=== PATIENT | female | born 2000 | race Caucasian/White ===

== ENCOUNTER 2024-10-01 23:57 | Emergency (ER) | payer MEDICAID, SELFPAY ==
[2024-10-02 00:03] VITALS: BP 143/86; PULSE 139; RESP 22; TEMP 39.5; O2SAT 98
--- NOTE | 2024-10-02 00:07 | PC.NURSE ---
sepsis alert called
--- NOTE | 2024-10-02 00:08 | XR_ITS ---
Examination: CT abdomen with intravenous contrast CT pelvis with intravenous contrast 2-D coronal reconstructions 2-D sagittal reconstructions Date and time of exam:October 02, 2024 0209 hrs. Indications: Onset right-sided flank pain beginning one week ago. CTDI: vol (mGy) 9.39 DLP: (mGycm) 563 Technique: Multiple axial sections of the abdomen and pelvis have been obtained. 64 slice high-resolution scanner used. 3 mm axial sections have been obtained, post intravenous injection 60 cc [id number] 2-D sagittal coronal reconstructions Low dose protocols, adjustment MA KV according to patient size Findings: 15 mm hypodense mass anterior right lobe liver which may represent fatty infiltration at the falciform ligament Contracted gallbladder Spleen not enlarged No pancreatic mass Multiple areas of edema with perinephric stranding right kidney Aorta normal size No pericecal inflammatory change No bowel obstruction No diverticulitis No pelvic mass Urinary bladder intact The osseous structures are intact Impression: Right pyelonephritis Recommend hepatic sonography to confirm fatty infiltration at the falciform ligament
--- NOTE | 2024-10-02 00:09 | PD.EDRME ---
Rapid Medical Screening Exam [facility] Arrival date/time: 10/01/24 23:57 23F with no significant PMH presents to ED with 1 week of worsening RLQ/flank pain and N/V. Patient denies dysuria, vaginal bleeding, and diarrhea. Chief Complaint: Abdominal Pain Vital signs: Vital Signs Temperature 103.1 F H 10/02/24 00:03 Pulse Rate 139 H 10/02/24 00:03 Respiratory Rate 22 H 10/02/24 00:03 Blood Pressure 143/86 H 10/02/24 00:03 Pulse Oximetry (%) 98 10/02/24 00:03 Oxygen Delivery Method Room Air 10/02/24 00:03
[2024-10-02 00:28] VITALS: TEMP 39.5
[2024-10-02] MEDS: KETOROLAC INJ 30 MG/ML VIAL IVP (00:28)
[2024-10-02] MEDS: ACETAMINOPHEN 500 MG TABLET 1000 MG PO (00:28)
[2024-10-02] MEDS: SODIUM CHLORIDE 0.9% 1000 ML 1,000 ML 999 ML IV (00:29)
[2024-10-02] MEDS: ONDANSETRON INJ 2 MG/ML INJ 2 ML 4 MG IV (00:29)
[2024-10-02 00:56] LABS: Collection Type, Urine Clean Catch
[2024-10-02 01:08] LABS: Lactate (Lactic Acid) 0.9 mMol/L (0.4-2.0)
[2024-10-02 01:16] LABS: Basophils % (Auto) 0 % (0-2.5); Eosinophils % (Auto) 0 % (0-10); Hematocrit 32.7 % (36.0-46.0); Hemoglobin 11.7 g/dL (12.0-16.0); Immature Granulocytes % (Auto) 0 % (0-0); Immature Granulocytes Auto 0.06 Thou/mm3 (0.00-0.00); Lymphocytes # (Auto) 1.2 Thou/mm3 (1.0-4.8); Lymphocytes % (Auto) 7 % (10-50); Mean Corpuscular HGB Conc 35.8 g/dl (31.0-37.0); Mean Corpuscular Hemoglobin 31.8 pg (25.0-35.0); Mean Corpuscular Volume 89 fL (80-100); Monocytes # (Auto) 2.1 Thou/mm3 (0.0-0.8); Monocytes % (Auto) 13 % (0-12); Neutrophils # (Auto) 12.6 Thou/mm3 (1.8-7.7); Neutrophils % (Auto) 79 % (37-80); Nucleated Red Blood Cell % 0 /100 WBC (0); Platelet Count 221 Thou/mm3 (140-440); RDW Standard Deviation 38.3 fL (36.4-46.3); Red Blood Count 3.68 Miln/mm3 (4.00-5.20)
--- NOTE | 2024-10-02 01:16 | PD.EDABDPN ---
ED Abdominal Pain RME/HPI General Chief Complaint: Abdominal Pain Stated complaint: RIGHT FLANK PAIN Time seen by provider: 10/02/24 01:17 Arrival date/time: 10/01/24 23:57 RME / HPI RME / HPI narrative: 10/01/24 23:57 23F with no significant PMH presents to ED with 1 week of worsening RLQ/flank pain and N/V. Patient denies dysuria, vaginal bleeding, and diarrhea. ----- Dr. Pineda's Main ED Evaluation: 23yo female with no significant past medical or surgical history accompanied by her mom presents to the ED for a chief complaint of right flank pain x 1 week. No radiation or migration. Patient states her pain has been constant, initially rating the pain a 10 out of 10 in severity. She states her pain worsens with movement, when she breathes, and when she goes to sleeps. She reports associated constipation x 2 days, one episode of N/V per day, dark-colored urine, a fever as high as 102, sweating, shortness of breath, chest pain, and a headache. She denies any UTI symptoms, hematuria, cough, dizziness, weakness, abnormal vaginal discharge or any other associated symptoms. She denies any current or previous pregnancies. She denies any history of similar symptoms. Denies being on any medications. No known allergies. LMP was . Patient denies any tobacco or alcohol use, but smokes marijuana. Familial history of kidney stones. PCP: [facility] Related Data Previous Rx's ?Medication ?Instructions ?Recorded ibuprofen 600 mg tablet 600 mg PO QID PRN fever or pain 12/14/19 #30 tabs acetaminophen 500 mg capsule 1,000 mg (2 x 500 mg) PO Q6H PRN 10/02/24 fever or pain #30 caps acetaminophen 500 mg capsule 1,000 mg (2 x 500 mg) PO Q6H PRN 10/02/24 fever or pain #30 caps amoxicillin 875 mg-potassium 1 tab PO BID #20 tabs 10/02/24 clavulanate 125 mg tablet amoxicillin 875 mg-potassium 1 tab PO BID #20 tabs 10/02/24 clavulanate 125 mg tablet ibuprofen 800 mg tablet 800 mg PO TID PRN pain #30 tabs 10/02/24 ibuprofen 800 mg tablet 800 mg PO TID PRN pain #30 tabs 10/02/24 Allergies Allergy/AdvReac Type Severity Reaction Status Date / Time No Known Allergies Allergy Verified 10/02/24 00:00 Review of Systems Review of Systems Systems Reviewed: All systems reviewed, normal except as documented Narrative Review of Systems: Gen: + fever, no chills, no weight loss, + swating EYES: No discharge, no visual changes, no pain HEENT: No ear pain, no congestion, no sore throat PULM: + shortness of breath, no cough, no congestion CV: + chest pain, no dyspnea on exertion, no palpitations GI: + nausea, + vomiting, no diarrhea, + pain, + constipation : No frequency, no urgency, no dysuria, + dark urine Musc/skel: No joint pain, no back pain Skin: No rash. Warm and dry. Psyc: No hallucinations, no depression Heme/Lymph: No easy bleeding or bruising tendencies Neuro: No weakness, + headache Past Medical History Past Medical History CARDIAC: Negative Cardiac Disorders RESPIRATORY: Negative Asthma GENITOURINARY: Negative Renal Disease ENDOCRINE: Negative Diabetes Mellitus Type 2 HEMATOLOGIC: Negative Sickle Cell Disease Social History SMOKING STATUS: Never smoker SUBSTANCE USE: marijuana ED Exam Narrative Physical exam: GEN. APPEARANCE: Patient is alert awake oriented x3 under no distress, laying down comfortably at 30-45?; does look ill, but not toxic. Patient has good eye contact. Patient is cooperative. VITALS: All vitals were reviewed and the pulse ox is 98% on room air, which is normal according to my interpretation. HEENT: Normocephalic, atraumatic and nontender. Pupils are equal and reactive to light and accommodation. Oral mucosa are moist. NECK: Supple, nontender, no meningismus, no JVD. CHEST: Nontender on palpation, no deformity and no crepitus. CARDIOVASCULAR: Heart regular rhythm no murmur or gallop rub or extra beats; not tachycardic. LUNGS: Clear to auscultation bilaterally with symmetrical chest rise. No laboring tachypnea or wheezing. No intercostal subcostal retraction. No rales and no rhonchi. ABDOMEN: Soft, flat, mild tenderness on deep palpation at the right lateral mid-abdomen, no guarding or rebound tenderness. There's no reverse rebound from the left to the right. No McBurney or Stahl's point tenderness. There are no abnormal masses palpated. GENITALIA: Not examined. RECTAL EXAM: Not done. EXTREMITIES: Nontender. No edema. No cyanosis. Patient is able to move all 4 extremities well. SKIN: Warm and dry, no rashes noted. MUSCULOSKELETAL: No lumbar or midline bony tenderness. There is right CVA tenderness. No paraspinal muscle spasm or tenderness. NEURO: Cranial nerves II through XII grossly intact. There is no focalization. GCS is 15. PSYCHIATRIC: Patient is in normal mood and affect, cooperative. LYMPHATICS: No major lymphadenopathy noted. Course Course Course Narrative: 0007: Sepsis alert initiated. Orders made at this time are congruent with ED Adult Sepsis Order List. Re-evaluation is to be completed. 0029: NS IVF started. 0020: Sepsis reassessment performed consisting of lab review, vitals, physical exam including auscultation of heart, lungs, and visual evaluation of capillary refills, mucosal membranes and extremities. Quality Measures Possible source: genitourinary Blood cultures ordered: yes Antibiotic ordered: Yes Pertinent labs: 10/02/24 00:57 Lactic Acid 0.9 mMol/L (0.4-2.0) Procalcitonin 0.21 ng/ml (0.0-0.49) sepsis Orders Category Date Time Status CT Screening NOW Care 10/02/24 00:08 Completed Insert IV NOW Care 10/02/24 00:[address] abdomen pelvis w con Stat Exams 10/02/24 00:08 Taken Blood Culture (Lab) Stat Lab 10/02/24 00:57 Received CBC Stat Lab 10/02/24 00:57 Completed CMP [Comprehensive Metabolic Panel] Stat Lab 10/02/24 00:57 Completed HCG Qualitative,Urine Stat Lab 10/02/24 00:19 Completed Lactate (Lactic Acid) Stat Lab 10/02/24 00:57 Completed Lipase Stat Lab 10/02/24 00:57 Completed Path Review Blood Smear Stat Lab 10/02/24 00:57 Completed Procalcitonin Stat Lab 10/02/24 00:57 Completed UA [Urinalysis] Stat Lab 10/02/24 00:19 Completed Urine Culture Stat Lab 10/02/24 00:19 Received Acetaminophen Tab [Tylenol ES Tab] Med 10/02/24 00:08 Discontinued 1,000 mg PO X1 ONE Ketorolac Inj [Toradol Inj] Med 10/02/24 00:08 Discontinued 30 mg IVP X1 ONE Ondansetron Inj [Zofran Inj] Med 10/02/24 00:08 Discontinued 4 mg IV X1 ONE Potassium Chloride [K-Dur] Med 10/02/24 02:37 Discontinued 40 meq PO X1 ONE Sodium Chloride 0.9% 1000 ml [Ns] 1,000 ml Med 10/02/24 00:08 Discontinued IV 999 mls/hr cefTRIAXone/D5w 1gm IV premix [Rocephin/D5w 1gm IV Med 10/02/24 01:28 Discontinued premix] 50 ml IV X1 Vital Signs Vital signs: Vital Signs Temperature 103.1 F H 10/02/24 00:03 Pulse Rate 139 H 10/02/24 00:03 Respiratory Rate 22 H 10/02/24 00:03 Blood Pressure 143/86 H 10/02/24 00:03 Pulse Oximetry (%) 98 10/02/24 00:03 Oxygen Delivery Method Room Air 10/02/24 00:03 Procedures -ED Smoking Cessation Time Spent Discussing Smoking Cessation w/Patient (min): 5 Patient Acknowledges Need for Cessation: Yes Additional Comments: The patient was counseled as to the multiple risks to their health from continued use of tobacco products. It was explained that continuing to smoke may lead to multiple short and senior living negative health consequences, including but not limited to mouth/esophageal/lung cancer, COPD, and heart disease. The patient states she/he understands these risks and also understands the options and resources available to them to help them stop smoking. Nicotine replacement therapy, local hotlines, and local resources were discussed as viable options for helping them stop their tobacco use. The total time spent counseling the patient regarding tobacco cessation was 5 minutes. Abdominal Pain MDM MDM Narrative MDM Narrative:: Scribe Attestation: 10/02/24 Kylie Peters am scribing for and in the presence of Dr. Pineda. Patient comes in accompanied by her mother complaining of right flank constant pain for the last 1 week which has gotten significantly worse in the last 2 days and now she is unable to sleep. She denies any hurting or burning on urination nor any hematuria. She denies any vaginal discharge or abnormal bleeding. Her normal last menstrual period was on 08/26/2024. She is 0. She vomited once yesterday without any blood in it and no diarrhea. She says that he has been constipated for the last 2 days. She had fever chills at home and she checked her temperature was 102; here, her temperature was 103.1 upon arrival. She was sweating a lot some shortness of breath and chest pain but no coughing or hemoptysis. She does have a headache but no weakness or dizziness. Past medical history is none she. She does not take any medications and no past surgical history. She never had this kind of pain before. She has a bad habit of using marijuana on a daily basis and I told her that she needs to quit doing that. Looking at her old records, patient was here only once on 12/14/2019 and she has never been admitted to the hospital. The triage PA had given her Toradol acetaminophen and Zofran which made her feel much better and the pain, that was 10 on a scale 0-10 at home, here it is 0 at the present time. Her physical exam is typical of pyelonephritis as she does not have any McBurney or Stahl's point tenderness. Her urine was collected and culture. I gave her Rocephin 1 g IV and a liter of fluid IV wide open and patient will be discharged home on Augmentin. Provider Notation: Although this document has been carefully reviewed, there may still be some phonetic and other typographical errors. These errors are purely grammatical due to imperfections in the software program and should not be construed in any way to compromise the substance of the patient's medical care during this visit. Patient data External records reviewed:: [facility] previous records (Per chart review, patient was seen here on 08/31/18 for a contusion of the right arm.) Clinical information provided by:: patient Social determinants that could affect healthcare access:: substance use (smokes marijuana) Patient has the following chronic illnesses:: none How is presenting disease/condition affected by chronic disease/condition?: no chronic disease Evaluation data The following diagnostics were reviewed and interpreted by me:: lab results and radiology exam(s) Lab and/or radiology exams considered but not ordered:: none Interpretation Summary: See above under MDM narrative. ----- [facility] Preliminary Report Draft Patient: KENYA YEAGER [facility]. Record#: [id number] Birthdate: 2000 Age/Sex: 23 / F Location: [facility] Attending Dr: Ordering Physician: Date of Service: Procedure(s): Accession Number(s): cc: ~ CT scan of the abdomen and pelvis with intravenous contrast (axial sections with sagittal and coronal reformats) October 02, 2024 0209 hours Clinical History: R-sided ab pain Comparison: No prior study is available for comparison. Findings: The lung bases are clear. A small hypodense lesion is noted in the liver, which is too small to characterize. There is heterogeneous enhancement of the right kidney with perinephric fat stranding. No evidence of hydronephrosis or obstructing calculus. There is a right renal cyst, measuring 1.5 cm. The gallbladder, pancreas, spleen,and adrenals are unremarkable. No evidence of bowel obstruction. The appendix is within normal limits (coronal images 63-82/144). There is no mesenteric or retroperitoneal adenopathy. The urinary bladder is unremarkable. There are bilateral ovarian cysts, the largest measuring 3 cm in the left ovary. There is no free fluid or free air. The osseous structures are unremarkable. Impression: Heterogeneous enhancement of the right kidney with perinephric fat stranding, suspicious for acute pyelonephritis. Recommend clinical and laboratory correlation. Other findings as described above. Report Electronically Signed By: Yanelis Landeros 10/02/2024 3:34:09 AM [EST] Medications / Prescriptions Medications or Prescriptions considered but not ordered:: none Medication administrations:: Medication Administration History Discontinued Medications Acetaminophen (Acetaminophen 500 Mg Tablet) 1,000 mg PO X1 ONE Stop: 10/02/24 00:09 Last Admin: 10/02/24 00:28 Dose: 1,000 mg Documented By: DAREK Sodium Chloride (Ns) 1,000 mls @ 999 mls/hr IV .Q1H1M ONE Stop: 10/02/24 01:08 Last Infusion: 10/02/24 02:42 Dose: Infused Documented By: Admin: 10/02/24 00:29 Dose: 999 mls/hr Documented By: DAREK Ceftriaxone Sodium/Dextrose (Rocephin/D5w 1gm Iv Premix) 50 mls @ 100 mls/hr IV X1 ONE Stop: 10/02/24 01:57 Last Infusion: 10/02/24 03:25 Dose: Infused Documented By: Admin: 10/02/24 02:39 Dose: 100 mls/hr Documented By: DAREK Ketorolac Tromethamine (Ketorolac Inj 30 Mg/Ml Vial) 30 mg IVP X1 ONE Stop: 10/02/24 00:09 Last Admin: 10/02/24 00:28 Dose: 30 mg Documented By: SF Ondansetron HCl (Ondansetron Inj 2 Mg/Ml Inj 2 Ml) 4 mg IV X1 ONE; Protocol Stop: 10/02/24 00:09 Last Admin: 10/02/24 00:29 Dose: 4 mg Documented By: DAREK Potassium Chloride (Potassium Chloride 20 Meq Tabcr) 40 meq PO X1 ONE Stop: 10/02/24 02:38 Last Admin: 10/02/24 02:39 Dose: 40 meq Documented By: DAREK see above Consultations Consultation(s) initiated? (list below): No Diagnosis Differential diagnosis abdominal pain: acute appendicitis and other (pyelonephritis, cholecystitis, ovarian torsion) Most likely diagnosis given after review of the tests above:: see below Admission Indicated Admission indicated?: not indicated Admission Request Was there a request for admission?: No Disposition Plan Disposition Plan: Discharge Discharge Attestation Discharge Attestation: The patient and all family members were given an opportunity to ask questions and understood the discharge instructions. Discharge instructions specifically effects, indications for sooner follow up or return to the emergency department, and the expected course of current diagnosis. Patient condition: Stable Discharge Plan Plan Patient Disposition: HOME (Self Care) Prescriptions/Referrals Prescriptions/Med Rec: New acetaminophen 500 mg capsule 1,000 mg PO Q6H PRN (Reason: fever or pain) Qty: 30 0RF amoxicillin-pot clavulanate 875-125 mg tablet 1 tab PO BID Qty: 20 0RF ibuprofen 800 mg tablet 800 mg PO TID PRN (Reason: pain) Qty: 30 0RF acetaminophen 500 mg capsule 1,000 mg PO Q6H PRN (Reason: fever or pain) Qty: 30 0RF ibuprofen 800 mg tablet 800 mg PO TID PRN (Reason: pain) Qty: 30 0RF amoxicillin-pot clavulanate 875-125 mg tablet 1 tab PO BID Qty: 20 0RF No Action ibuprofen 600 mg tablet 600 mg PO QID PRN (Reason: fever or pain) Qty: 30 0RF Referrals: Luis Enrique Perez MD [Primary Care Provider] - 10/04/24 10:00 am Problem List Clinical Impression: Abdominal pain, Acute right flank pain, Pyelonephritis Patient/Caregiver Discharge Instructions Education Materials: ED Pyelonephritis, Female (Adult) Additional Instructions: Bedrest for 2 days and drink lots of water, Pedialyte and Gatorade. Take Tylenol or ibuprofen if necessary for pain as well as continue taking your antibiotics as prescribed. Follow-up with your doctor in 2 days and tell them that you got a shot of Rocephin 1 g IV here today. You should have a repeat urinalysis done 3 to 4 days after your home antibiotics are finished. Print Language: [place] Citizen Stand Alone Forms: Chloe Award Info., Patient Portal Info Letter
[2024-10-02 01:25] VITALS: TEMP 37.2
[2024-10-02 01:25] LABS: Bacteria,Urine 4+; Bilirubin,Urine Negative (Negative); Blood,Urine 1+ (Negative); Clarity,Urine Turbid (Clear/Hazy); Color,Urine Yellow (Lt Yel-Yel); Glucose, Urine Negative (Negative); Hyaline Casts,Urine < 1 /hpf (0-1); Ketones,Urine 1+ (Negative); Leukocyte Esterase,Urine Positive (Negative); Nitrite,Urine Positive (Negative); Protein,Urine 1+ (Neg - Trace); RBC,Urine 20 /hpf (0-3); Specific Gravity,Urine 1.026 (1.001-1.035); Squamous Epithelial Cell,Urine 18 /hpf (0-5); WBC,Urine 30 /hpf (0-5)
[2024-10-02 01:26] LABS: HCG Qualitative,Urine Negative
[2024-10-02 01:47] LABS: Alanine Aminotransferase 51 U/L (10-49); Albumin, Serum 4.1 gm/dL (3.5-5.0); Albumin/Globulin Ratio 1.4 (1.2-2.2); Alkaline Phosphatase 84 U/L (46-116); Anion Gap 7 (7-16); Aspartate Amino Transferase 71 U/L (0-34); BUN/Creatinine Ratio 20 Ratio (12-20); Bilirubin,Total 1.2 mg/dL (0.3-1.2); Blood Urea Nitrogen 12 mg/dL (9-23); Calcium 8.4 mg/dL (8.3-10.6); Calcium (Corrected) 8.4 mg/dL (8.5-10.1); Carbon Dioxide 22.8 mMol/L (20.0-31.0); Chloride 107 mMol/L (98-107); Creatinine (Component) 0.6 mg/dL (0.6-1.3); Glucose 101 mg/dL (74-106); Lipase 27 U/L (12-53); Osmolality,Calculated 273 (275-295); Procalcitonin 0.21 ng/ml (0.0-0.49); Sodium 137 mMol/L (136-145); Total Protein 7.1 gm/dL (5.7-8.2); eGFR > 60 See Note
[2024-10-02 01:55] LABS: Potassium 2.7 mMol/L (3.4-5.1)
[2024-10-02] MEDS: POTASSIUM CHLORIDE 20 mEq TABCR 40 MEQ PO (02:39)
[2024-10-02] MEDS: cefTRIAXone/D5w 1gm IV premix 50 ML IV (02:39)
--- NOTE | 2024-10-02 03:34 | PRELIM_ITS ---
CT scan of the abdomen and pelvis with intravenous contrast (axial sections with sagittal and coronal reformats) October 02, 2024 0209 hoursClinical History: R-sided ab painComparison: No prior study i s available for comparison. Findings:The lung bases are clear.A small hypodense lesion is noted in th e liver, which is too small to characterize.There is heterogeneous enhancement of the right kidney wi th perinephric fat stranding. No evidence of hydronephrosis or obstructing calculus. There is a right renal cyst, measuring 1.5 cm. The gallbladder, pancreas, spleen,and adrenals are unremarkable.No ania dence of bowel obstruction. The appendix is within normal limits (coronal images 63-82/144). There is no mesenteric or retroperitoneal adenopathy.The urinary bladder is unremarkable. There are bilateral ovarian cysts, the largest measuring 3 cm in the left ovary. There is no free fluid or free air.The osseous structures are unremarkable.Impression:Heterogeneous enhancement of the right kidney with per inephric fat stranding, suspicious for acute pyelonephritis. Recommend clinical and laboratory correl ation.Other findings as described above. Report Electronically Signed By: Yanelis Landeros 10/02/2024 3:3 4:09 AM [EST]
[2024-10-02 03:54] VITALS: BP 109/69; PULSE 86; RESP 15; TEMP 37.1; O2SAT 99
[2024-10-02 05:39] LABS: Path Review Blood Smear Sent to Pathologist
== END 2024-10-02 03:59 | disposition home or self-care (01) ==
PROVIDERS: Physician Assistant; Emergency Provider Emergency Medicine; PCP Family Medicine
DX: N12 Tubulo-interstitial nephritis, not specified as acute or chronic (principal)
CPT/HCPCS: 36415; 74177; 80053; 81001; 81025; 83605; 83690; 84145; 85025; 87040; 87077; 87086; 87186; 96361; 96365; 96375; 99285; A4649; J0696; J1885; J2405; J7030; Q9967; A9270

== ENCOUNTER 2025-02-22 22:43 | Emergency (ER) | payer MEDICAID, SELFPAY ==
[2025-02-22 22:45] VITALS: BMI 27.3
[2025-02-22 23:08] VITALS: BP 120/83; PULSE 83; RESP 20; TEMP 36.9; O2SAT 98
--- NOTE | 2025-02-22 23:17 | PD.EDRME ---
Rapid Medical Screening Exam RME Arrival date/time: 02/22/25 22:43 24 yo f present to ED for c/o abd pain for 1 day I have greeted and performed a focused initial assessment of this patient. A comprehensive ED assessment and evaluation of the patient, analysis of all test results, and completion of the medical decision making process will be conducted by additional ED providers. Chief Complaint: Abdominal Pain Time Seen by Provider: 02/22/25 22:52 Vital signs: Vital Signs Temperature 98.4 F 02/22/25 23:08 Pulse Rate 83 02/22/25 23:08 Respiratory Rate 20 02/22/25 23:08 Blood Pressure 120/83 02/22/25 23:08 Pulse Oximetry (%) 98 02/22/25 23:08 Oxygen Delivery Method Room Air 02/22/25 23:08
[2025-02-22] MEDS: ONDANSETRON ODT 4 MG TABRAP PO (23:26)
[2025-02-22] MEDS: HYDROcodone/APAP 5/325 TABLET 1 TAB PO (23:26)
[2025-02-23 00:10] LABS: Basophils # (Auto) 0.1 Thou/mm3 (0.0-0.2); Basophils % (Auto) 0 % (0-2.5); Eosinophils % (Auto) 0 % (0-10); Hematocrit 36.5 % (36.0-46.0); Hemoglobin 13.2 g/dL (12.0-16.0); Immature Granulocytes % (Auto) 0 % (0-0); Immature Granulocytes Auto 0.04 Thou/mm3 (0.00-0.00); Lymphocytes # (Auto) 2.6 Thou/mm3 (1.0-4.8); Lymphocytes % (Auto) 22 % (10-50); Mean Corpuscular HGB Conc 36.2 g/dl (31.0-37.0); Mean Corpuscular Volume 88 fL (80-100); Monocytes # (Auto) 0.6 Thou/mm3 (0.0-0.8); Monocytes % (Auto) 5 % (0-12); Neutrophils # (Auto) 8.6 Thou/mm3 (1.8-7.7); Neutrophils % (Auto) 73 % (37-80); Nucleated Red Blood Cell % 0 /100 WBC (0); Platelet Count 361 Thou/mm3 (140-440); RDW Standard Deviation 39.1 fL (36.4-46.3); Red Blood Count 4.13 Miln/mm3 (4.00-5.20); White Blood Count 11.8 Thou/mm3 (3.6-11.0)
[2025-02-23 00:22] LABS: Collection Type, Urine Voided
[2025-02-23 00:39] LABS: Alanine Aminotransferase 26 U/L (10-49); Albumin, Serum 4.6 gm/dL (3.5-5.0); Albumin/Globulin Ratio 1.4 (1.2-2.2); Alkaline Phosphatase 69 U/L (46-116); Anion Gap 10 (7-16); Aspartate Amino Transferase 29 U/L (0-34); BUN/Creatinine Ratio 23 Ratio (12-20); Bilirubin,Total 1.4 mg/dL (0.3-1.2); Blood Urea Nitrogen 14 mg/dL (9-23); Calcium 9.5 mg/dL (8.3-10.6); Calcium (Corrected) 9.5 mg/dL (8.5-10.1); Carbon Dioxide 20.2 mMol/L (20.0-31.0); Chloride 106 mMol/L (98-107); Creatinine (Component) 0.6 mg/dL (0.6-1.3); Estimated Creatinine Clearance 164.8 mL/min (>60); Globulin 3.3 gm/dL (2.3-3.5); Glucose 101 mg/dL (74-106); Lipase 114 U/L (12-53); Osmolality,Calculated 272 (275-295); Sodium 136 mMol/L (136-145); Total Protein 7.9 gm/dL (5.7-8.2); eGFR > 60 See Note
[2025-02-23 00:43] LABS: Bacteria,Urine 4+; Bilirubin,Urine Negative (Negative); Blood,Urine Trace (Negative); Clarity,Urine Turbid (Clear/Hazy); Color,Urine Yellow (Lt Yel-Yel); Glucose, Urine Negative (Negative); Ketones,Urine 3+ (Negative); Leukocyte Esterase,Urine Positive (Negative); Nitrite,Urine Positive (Negative); Protein,Urine 1+ (Neg - Trace); RBC,Urine 8 /hpf (0-3); Squamous Epithelial Cell,Urine 6 /hpf (0-5); Urobilinogen,Urine Negative mg/dL (0.0-1.0); WBC,Urine 5 /hpf (0-5)
[2025-02-23 00:51] LABS: HCG,Qualitative Serum Negative
--- NOTE | 2025-02-23 00:53 | XR_ITS ---
Examination: Abdomen sonogram, Limited Date and time of exam: February 23, 2025 0147 hrs. Indications: Onset epigastric pain today Technique: Real-time burgess scale transabdominal sonographic images of the upper abdomen obtained. Findings: Normal gallbladder. Normal common bile duct 0.5 cm Pancreatic head 2.1 Liver 14.4 cm fatty infiltration no focal liver lesions Normal hepatopedal portal venous flow Patent IVC Impression: Normal gallbladder
[2025-02-23 02:29] VITALS: BP 116/80; PULSE 73; RESP 16; TEMP 36.8; O2SAT 100
[2025-02-23] MEDS: KETOROLAC INJ 60 MG/2 ML VIAL 30 MG IM (03:54)
--- NOTE | 2025-02-23 04:02 | PRELIM_ITS ---
Right upper quadrant abdominal ultrasound with doppler and wave doppler spectral analysis. February 23, 2025 0147 hours Clinical history: Right upper quadrant/epigastric pain. Technique: Grayscale and color flow images of the right upper quadrant are provided. Hepatic and portal veins were also imaged with color flow images. Comparison: None available at the time of this report. Findings: The liver demonstrates increased echogenicity. No intrahepatic biliary ductal dilatation. No gallbladder calculus, wall thickening or pericholecystic fluid is demonstrated. The common bile duct is normal in caliber at 4.5 mm. The pancreas is unremarkable to the extent visualized. The imaged portions of the right kidney are within normal limits. The portal vein is patent with hepatopetal flow and normal wave Doppler spectral analysis. The inferior vena cava is patent. The hepatic veins are patent. Impression: Liver steatosis. No evidence of acute cholecystitis. Report Electronically Signed By: Ney Howard 02/23/2025 4:01:59 AM [EST]
--- NOTE | 2025-02-23 05:28 | PD.EDABDPN ---
ED Abdominal Pain RME/HPI General Chief Complaint: Abdominal Pain Stated complaint: upper abd pain Time seen by provider: 02/22/25 22:52 Arrival date/time: 02/22/25 22:43 24 year old female present to emergency room with c/o of abd pain for 1 day. LOCATION: epigastric SEVERITY: Symptoms are described as being severe with limitations on activities of daily living QUALITY: Symptoms are described as being cramping CONTEXT: The patient is unable to identify any inciting events. DURATION/TIMING: The symptoms started approximately one day ago and have been waxing/waning but always present without ever completely resolving. ASSOCIATED SYMPTOMS: The patient is unable to identify any other associated symptoms. MODIFYING FACTORS: The patient is unable to identify any alleviating or aggravating symptoms. PERTINENT ROS: no fevers, no anorexia, no nausea or vomiting, no diarrhea, no ripping or tearing sensations, no syncope or presyncopal symptoms, denies trauma, denies genital pain REVIEW OF SYSTEMS: See History of Present Illness - with the exception of those mentioned in the history of present illness, all other systems reviewed and reported as negative GENERAL: In general the patient is awake, interactive, in an emergency department gurney. HEAD/EYES/EARS/NOSE/THROAT: normo-cephalic, atraumatic, mucus membranes are moist, anicteric, palpebral conjunctiva is pink, trachea is midline. CARDIOVASCULAR: regular rate and regular rhythm, no murmurs, heart sounds are not distant, strong pulses in all four extremities that are equal and symmetric bilateral upper and lower extremities, normal capillary refill. CHEST/PULMONARY: normal chest rise and fall, good air movement, clear to auscultation bilaterally, normal inspiratory to expiratory ratios without evidence of respiratory distress. NECK: No midline/Paraspinal tenderness, no step off ROM/Strenght intact No Kernig and bruzinski sign. No trauma ABDOMEN: soft, epigastric tenderness, no cva tenderness no masses appreciated BACK: normal range of motion without pain. NEUROLOGICAL: cranio-facial features are symmetric, moves all four extremities equally without obvious limitations or weakness. EXTREMITY: no tenderness to palpation over the long bones or large joints of the bilateral upper and lower extremities, no joint swelling, no joint erythema, no signs of trauma, no unilateral leg swelling and no peripheral edema. SKIN: warm, dry, well-perfused, no jaundice, no rash, no telangiectasias or petechia. PSYCH: calm, cooperative, no evidence of psychosis or agitation RME / HPI RME / HPI narrative: 02/22/25 22:43 24 yo f present to ED for c/o abd pain for 1 day I have greeted and performed a focused initial assessment of this patient. A comprehensive ED assessment and evaluation of the patient, analysis of all test results, and completion of the medical decision making process will be conducted by additional ED providers. Related Data Previous Rx's ?Medication ?Instructions ?Recorded ibuprofen 600 mg tablet 600 mg PO QID PRN fever or pain 12/14/19 #30 tabs acetaminophen 500 mg capsule 1,000 mg (2 x 500 mg) PO Q6H PRN 10/02/24 fever or pain #30 caps acetaminophen 500 mg capsule 1,000 mg (2 x 500 mg) PO Q6H PRN 10/02/24 fever or pain #30 caps amoxicillin 875 mg-potassium 1 tab PO BID #20 tabs 10/02/24 clavulanate 125 mg tablet amoxicillin 875 mg-potassium 1 tab PO BID #20 tabs 10/02/24 clavulanate 125 mg tablet ibuprofen 800 mg tablet 800 mg PO TID PRN pain #30 tabs 10/02/24 ibuprofen 800 mg tablet 800 mg PO TID PRN pain #30 tabs 10/02/24 Allergies Allergy/AdvReac Type Severity Reaction Status Date / Time No Known Allergies Allergy Verified 10/02/24 00:00 Course Course Course Narrative: Patient?s symptoms not typical for emergent causes of abdominal pain such as, but not limited to, appendicitis, abdominal aortic aneurysm, surgical biliary disease, pancreatitis, SBO, mesenteric ischemia, serious intra-abdominal bacterial illness. Presentation also not typical of gynecologic emergencies such as?TOA, Ovarian Torsion, PID. Not Ectopic. Doubt atypical ACS. Pt tolerating PO. Disposition: Patient will be discharged with strict return precautions and follow up with primary MD within 12-24 hours for further evaluation. Patient understands that this still may have an early presentation of an emergent medical condition such as appendicitis that will require a recheck. Quality Measures none Orders Category Date Time Status US abdomen limited Stat Exams 02/23/25 00:53 Taken CBC Stat Lab 02/22/25 23:36 Completed CMP [Comprehensive Metabolic Panel] Stat Lab 02/22/25 23:36 Completed HCG,Qualitative Serum Stat Lab 02/22/25 23:36 Completed Lipase Stat Lab 02/22/25 23:36 Completed UA [Urinalysis] Stat Lab 02/23/25 00:14 Completed HYDROcodone*/APAP 5/325 [Aztec 5/325] Med 02/22/25 23:16 Discontinued 1 tab PO X1 ONE Ketorolac Inj [Toradol Inj] Med 02/23/25 03:40 Discontinued 30 mg IM X1 ONE Ondansetron Odt [Zofran Odt] Med 02/22/25 23:16 Discontinued 4 mg PO X1 ONE Vital Signs Vital signs: Vital Signs Temperature 98.4 F 02/22/25 23:08 Pulse Rate 83 02/22/25 23:08 Respiratory Rate 20 02/22/25 23:08 Blood Pressure 120/83 02/22/25 23:08 Pulse Oximetry (%) 98 02/22/25 23:08 Oxygen Delivery Method Room Air 02/22/25 23:08 Abdominal Pain MDM Patient data External records reviewed:: [facility] previous records Clinical information provided by:: patient Social determinants that could affect healthcare access:: none Patient has the following chronic illnesses:: n/a How is presenting disease/condition affected by chronic disease/condition?: no chronic disease Evaluation data The following diagnostics were reviewed and interpreted by me:: lab results and radiology exam(s) Lab and/or radiology exams considered but not ordered:: n/a Interpretation Summary: cbc/cmp wnl hcg negative us: no acute findings Medications / Prescriptions Medications or Prescriptions considered but not ordered:: n/a Medication administrations:: Medication Administration History Discontinued Medications Hydrocodone Bitart/Acetaminophen (Hydrocodone/Apap 5/325 Tablet) 1 tab PO X1 ONE Stop: 02/22/25 23:17 Last Admin: 02/22/25 23:26 Dose: 1 tab Documented By: SHON Ketorolac Tromethamine (Ketorolac Inj 60 Mg/2 Ml Vial) 30 mg IM X1 ONE Stop: 02/23/25 03:41 Last Admin: 02/23/25 03:54 Dose: 30 mg Documented By: SHON Ondansetron HCl (Ondansetron Odt 4 Mg Tabrap) 4 mg PO X1 ONE; Protocol Stop: 02/22/25 23:17 Last Admin: 02/22/25 23:26 Dose: 4 mg Documented By: CB as stated above Consultations Consultation(s) initiated? (list below): No Diagnosis Differential diagnosis abdominal pain: abdominal pain, calculus of kidney, constipation, gastroenteritis, pancreatitis and other (gallstone , gastritis ) Most likely diagnosis given after review of the tests above:: abd pain Admission Indicated Admission indicated?: not indicated Admission Request Was there a request for admission?: No Disposition Plan Disposition Plan: Discharge Discharge Attestation Discharge Attestation: The patient and all family members were given an opportunity to ask questions and understood the discharge instructions. Discharge instructions specifically effects, indications for sooner follow up or return to the emergency department, and the expected course of current diagnosis. Patient condition: Stable Discharge Plan Plan Patient Disposition: HOME (Self Care) Health Concerns: Follow with PMD as directed Take tylenol or motrin as need Return to ED if sx worsen Prescriptions/Referrals Prescriptions/Med Rec: No Action ibuprofen 600 mg tablet 600 mg PO QID PRN (Reason: fever or pain) Qty: 30 0RF acetaminophen 500 mg capsule 1,000 mg PO Q6H PRN (Reason: fever or pain) Qty: 30 0RF amoxicillin-pot clavulanate 875-125 mg tablet 1 tab PO BID Qty: 20 0RF ibuprofen 800 mg tablet 800 mg PO TID PRN (Reason: pain) Qty: 30 0RF acetaminophen 500 mg capsule 1,000 mg PO Q6H PRN (Reason: fever or pain) Qty: 30 0RF ibuprofen 800 mg tablet 800 mg PO TID PRN (Reason: pain) Qty: 30 0RF amoxicillin-pot clavulanate 875-125 mg tablet 1 tab PO BID Qty: 20 0RF Referrals: Luis Enrique Perez MD [Primary Care Provider] - In 1 week Problem List Clinical Impression: Abdominal pain Patient/Caregiver Discharge Instructions Education Materials: Abdominal Pain Print Language: Ethiopian Stand Alone Forms: Chloe Award Info., Patient Portal Info Letter
[2025-02-23] MEDS: MG HYD/AL HYD/SIME (Maalox Reg) SUSP 30 ML UDC PO (06:01)
[2025-02-23] MEDS: FAMOTIDINE 20 MG TABLET PO (06:02)
== END 2025-02-23 06:05 | disposition home or self-care (01) ==
PROVIDERS: Physician Assistant; Emergency Provider Emergency Medicine; PCP Family Medicine
DX: R10.10 Upper abdominal pain, unspecified (principal)
CPT/HCPCS: 36415; 76705; 80053; 81001; 83690; 84703; 85025; 96372; 99283; J1885; Q0162; A9270